=== PATIENT | male | born 1975 | race Caucasian/White ===

== ENCOUNTER 2018-03-18 00:50 | Emergency (ER) | payer OTHER ==
[~2018-03-18] VITALS: Ht 180.3 cm; Wt 106.6 kg
[~2018-03-18 00:50] MED LIST: PERCOCET
[2018-03-18 03:53] VITALS: BP 101/62
== END 2018-03-18 03:53 | disposition home or self-care (01) ==
LOC: ER 00:50
DX: S06.0X0A Concussion without loss of consciousness, initial encounter (principal); Z90.89 Acquired absence of other organs; V86.99XA Unspecified occupant of other special all-terrain or other off-road motor vehicle injured in nontraffic accident, initial encounter; Y92.89 Other specified places as the place of occurrence of the external cause; Y93.89 Activity, other specified; Y99.8 Other external cause status